=== PATIENT | female | born 1965 ===

== ENCOUNTER 2016-09-22 15:27 | Emergency (ER) | payer BC ==
[2016-09-22 15:37] VITALS: BP 156/92
--- NOTE | 2016-09-22 16:02 | UC ---
UC General HPI - HPI Summary HPI Summary: headaches off and on for past 2 weeks, tend to be worse at end of day. Only rarely taking meds for the headache. Usually headache-free in AM, it builds as day goes on. She checked her BP a few days ago with 's cuff, and it was 180/100. Didn't believe it, so she went to [facility] and rechecked and it was the same. Her mother had high BP and cardiac disease, [place] in her early 50s. Only meds this pt takes: thyroid replacement and Wellbutrin. No recent checks on thyroid hormone level. No supplements, no decongestants, no diet pills. She did call her primary care doctor for an appt. Has appt in 6 days, but they advised her to come in here due to the headaches. - History of Current Complaint Chief Complaint: UCGeneralIllness Stated Complaint: HIGH BP-180/100 Time Seen by Provider: 09/22/16 15:45 Hx Obtained From: Patient Onset/Duration: Gradual Onset Timing: Constant Onset Severity: Mild Current Severity: Mild Associated Signs & Symptoms: Positive: Headache - off and on, daily for 2 weeks. Negative: Cough, Dizziness, Decreased Oral Intake, Fever, Nausea, Palpitations, Recent Medication Changes, Syncope, SOB - Allergy/Home Medications Allergies/Adverse Reactions: Allergies Allergy/AdvReac Type Severity Reaction Status Date / Time No Known Allergies Allergy Verified 09/22/16 15:36 Home Medications: Home Medications Bupropion XL* [Wellbutrin XL *] 150 mg PO BID 09/22/16 [History Confirmed ] Levothyroxine TAB* [Synthroid TAB*] 1 tab PO 0800 09/22/16 [History Confirmed ] PMH/Surg Hx/FS Hx/Imm Hx Endocrine History Of: Reports: Thyroid Disease Psychological History Of: Reports: Depression - Surgical History Surgical History: Yes Surgery Procedure, Year, and Place: Gallbladder. Ovarian Cyst removal. Uterine Ablation - Family History Known Family History: Positive: Cardiac Disease, Hypertension - Social History Occupation: Employed Full-time Lives: With Family Alcohol Use: Rare Substance Use Type: None Smoking Status (MU): Never Smoked Tobacco Review of Systems Constitutional: Negative Skin: Negative Eyes: Negative ENT: Negative Respiratory: Negative Cardiovascular: Negative Gastrointestinal: Negative Genitourinary: Negative Motor: Negative Neurovascular: Negative Musculoskeletal: Negative Neurological: Headache Psychological: Negative All Other Systems Reviewed And Are Negative: Yes Physical Exam Triage Information Reviewed: Yes Appearance: Well-Appearing, No Pain Distress, Well-Nourished, Obese Vital Signs: Initial Vital Signs Temp 98.6 F 09/22/16 15:30 Pulse 90 09/22/16 15:30 Resp 14 09/22/16 15:30 BP 156/92 09/22/16 15:30 Pulse Ox 98 09/22/16 15:30 Vital Signs Reviewed: Yes Eye Exam: Normal Eyes: Positive: Conjunctiva Clear, Other: - fundi normal with flat discs ENT Exam: Normal Neck exam: Normal Respiratory Exam: Normal Respiratory: Positive: Lungs clear, Normal breath sounds, No respiratory distress, No accessory muscle use Cardiovascular Exam: Normal Cardiovascular: Positive: RRR Musculoskeletal Exam: Normal Neurological Exam: Normal Neurological: Positive: Alert, Muscle Tone Normal Psychological Exam: Other - seems very anxious about her BP elevation Skin Exam: Normal Diagnostics - Laboratory Diagnostic Studies Completed/Ordered: EKG: NSR, unremarkable, no muscle thickening. TSH sent Course/Dx - Differential Dx - Multi-Symptom Provider Diagnoses: hypertension Discharge - Discharge Plan Condition: Stable Disposition: HOME Patient Education Materials: Hypertension (ED) Additional Instructions: Keep a diary of your blood pressures between now and your doctor visit. Note the time of day and whether you are having headache or other unusual symptoms. Avoid ibuprofen/naproxen. Take Tylenol or aspirin products for headaches Try relaxation techniques if you feel stressed out: massage, hot soaks, yoga Your regular physician will review your blood pressure diary and will determine whether you need a daily medication to control the blood pressure. Losing even small amounts of weight (10-20 lb) can get rid of the need for blood pressure medication
== END 2016-09-22 16:21 | disposition home or self-care (01) ==
LOC: UCCORT 15:27
DX: I10 Essential (primary) hypertension (principal); E07.9 Disorder of thyroid, unspecified; F32.9 Major depressive disorder, single episode, unspecified
CPT/HCPCS: 36415; 84443; 93005; 99211; G0463